=== PATIENT | female | born 1990 | race Caucasian/White ===

== ENCOUNTER 2016-05-01 06:56 | Emergency (ER) | payer OTHER ==
--- NOTE | 2016-05-01 08:05 | DIAGNOSTIC IMAGING REPORT ---
PROCEDURE: XR CHEST 1 VIEW INDICATION: Stage IV sarcoma, shortness of breath. Initial encounter. TECHNIQUE: Portable AP view 07:16 a.m. COMPARISON: None. FINDINGS: Marked widening of the superior mediastinum. Mild cardiomegaly with normal pulmonary vascularity. Right upper lobe and bibasilar infiltrates with small left pleural effusion. Right-sided central line with the tip at the SVC/right atrial junction. Surgical hardware over the thoracic spine from T5 to T11. Left glenohumeral joint arthroplasty. IMPRESSION: 1. Negative chest.
--- NOTE | 2016-05-01 08:35 | ED NURSING NOTES ---
Clinical Report - Nurses [facility] [address] [place] [address] 05/01/2016 7:00 [id number] Triage time 07:00. Acuity: LEVEL 3. Chief Complaint: DIFFICULTY BREATHING. --07:06 Karen Herrera R.N. 07:03 05/01/16. BP: 126/66. HR: 170. RR: 26. O2 saturation: 82% on room air. O2 started via nasal cannula at 2 liters/minute. Temp: 99.6 F (oral). Guevara-Guadalupe pain scale: 4/10. --07:06 Karen Herrera R.N. Weight: 34 kg stated. Height/Length: 59 inches Per Patient. BMI: 15.2. --07:05 Karen Herrera R.N. Medications ClonazePAM Oral. --07:05 Karen Herrera R.N. Morphine Sulfate Oral. --07:05 Karen Herrera R.N. Allergies No Known Drug Allergy. --07:06 Karen Herrera R.N. History Arrived by EMS. Historian: patient. Primary physician (Hospice). This started today. Treatment VETERINARY RECEPTIONIST: (Morphine (given by family)). See EMS report. --07:06 Karen Herrera R.N. PROBLEMS: Sarcoma. --07:06 Karen Herrera R.N. ADDITIONAL SURGERIES: Back Surgery. --07:06 Karen Herrera R.N. Interventions ID band on patient. To treatment room. --07:06 Karen Herrera R.N. PHYSICAL ASSESSMENT 07:26 05/01/16. GENERAL / NEURO / PSYCH: Appears anxious and in distress. Decreased awareness. She has had weakness. RESPIRATORY: Severe respiratory distress. The patient can speak a few words at a time. Nasal flaring present. Prominent accessory muscle use. Decreased breath sounds. Bilateral rhonchi present diffusely; rhonchi present in the right lung; rhonchi present in the left lung. CVS: Cardiac rhythm: sinus tachycardia; (172). SKIN: Skin is pale. --07:26 Felipe Estrada R.N. NURSING PROGRESS NOTES 07:05/01/16. Care transferred and report received. --07:08 Felipe Estrada R.N. EKG time: (07:16 AM). EKG was performed by a tech and shown to the ED physician. --07:19 Rossy Krueger 07:15 05/01/2016 Site #1 started via IV in the right forearm with an 20g angiocath, with aseptic technique and good blood return; one attempt. Blood drawn: rainbow set. Labeled in the presence of the patient and sent to the lab. Saline lock flushed with 10 mL saline (started by RONDA Tate). --07:21 Karen Herrera R.N. 07:20 05/01/2016 Ativan (LORazepam) IVP 0.5 mg given over 30 second(s) via site #1. Sedative warning given to the patient. IV patency established. IV site checked: no pain, redness, or swelling. IV flushed thoroughly pre- and post-medication administration. IVP given by RN. --07:21 Karen Herrera R.N. 07:26 05/01/16. The plan of care for this patient has been created. Oxygen administered at 4 liters. bus monitor, pulse oximeter and NIBP monitor placed on patient; monitor alarms on. Patient gowned. Head of bed elevated. Reassurance given to the patient and patient's family. Two patient identifiers checked. Call light placed in reach. Side rails up x 2. Bed placed in lowest position. Brakes of bed on. Brakes of chair on. --07:26 Felipe Estrada R.N. 07:26 05/01/16. Cardiac rhythm: sinus tachycardia. --07:27 Felipe Estrada R.N. 07:27 05/01/16. ( Assumed care of pt, pt with rapid RR and in resp distress, MD at bedside pt with decreased LOC, pt is hospice care and MD talking with family about POC). --07:27 Felipe Estrada R.N. 07:29 05/01/2016 Ativan (LORazepam) IVP 1 mg given over 2 minute(s) via site #1. Allergies verified, confirmed 5 rights and sedative warning given to the patient. IV patency established. IV site checked: no pain, redness, or swelling. IV flushed thoroughly pre- and post-medication administration. IVP given by physician. --07:29 Felipe Estrada R.N. 07:29 05/01/2016 HALDOL (Haloperidol Lactate) IVP 4 mg given over 2 minute(s) via site #1. Allergies verified, confirmed 5 rights and sedative warning given to the patient. IV patency established. IV site checked: no pain, redness, or swelling. IV flushed thoroughly pre- and post-medication administration. IVP given by RN. --07:29 Felipe Estrada R.N. 07:32 05/01/2016 Started 2 gm of Rocephin (CefTRIAXone Sodium) IVPB in bag #1 50 mL; at 150 mL/hr over 20 minute(s) via site #1; Allergies verified and confirmed 5 rights. IV patency established. IV site checked: no pain, redness, or swelling. IV flushed thoroughly pre- and post-medication administration. Completed per protocol. --07:42 Felipe Estrada R.N. 07:37 05/01/16. ( Pt taking off oxygen and is restless, plan is to get pt comfortable). --07:37 Felipe Estrada R.N. 07:37 05/01/16. ( Ice given and oral care completed). --07:37 Felipe Estrada R.N. 07:47 05/01/2016 Etomidate IVP 5 mg given over 2 minute(s) via site #1. Allergies verified, confirmed 5 rights and sedative warning given to the patient. IV patency established. IV site checked: no pain, redness, or swelling. IV flushed thoroughly pre- and post-medication administration. IVP given by RN. --07:47 Felipe Estrada R.N. 07:48 05/01/2016 Rocephin IVPB Discontinued: bag #1 infused. Total amount infused: 50 mL. IV patency established. IV site checked: no pain, redness, or swelling. IV flushed thoroughly. --07:48 Felipe Estrada R.N. 07:51 05/01/2016 Started 900 mg of Clindamycin IVPB in bag #1 50 mL; at 100 mL/hr over 30 minute(s) via site #1; Allergies verified and confirmed 5 rights. IV patency established. IV site checked: no pain, redness, or swelling. IV flushed thoroughly pre- and post-medication administration. Completed per protocol. --07:51 Felipe Estrada R.N. 07:54 05/01/16. --07:54 Felipe Estrada R.N. 07:51 05/01/16. BP: 122/63. HR: 110. RR: 30. O2 saturation: 98% on nasal cannula at 4 liters/minute. --07:54 Felipe Estrada R.N. 07:56 05/01/16. HR: 162. O2 saturation: 97% on nasal cannula at 4 liters/minute. --07:56 Felipe Estrada R.N. 07:56 05/01/16. --07:56 Felipe Estrada R.N. 07:56 05/01/16. Reassessment after medication administered. She is calm and has had no adverse reaction. --07:56 Felipe Estrada R.N. 08:15 05/01/2016 Clindamycin IVPB Discontinued: infused. Total amount infused: 50 mL. IV patency established. IV site checked: no pain, redness, or swelling. IV flushed thoroughly. --08:20 Felipe Estrada R.N. 08:20 05/01/2016 Started 500 mg of Zithromax (Azithromycin) IVPB in bag #1 250 mL; at 250 mL/hr over 1 hour(s) via site #1; Allergies verified and confirmed 5 rights. IV patency established. IV site checked: no pain, redness, or swelling. IV flushed thoroughly pre- and post-medication administration. Completed per protocol. --08:20 Felipe Estrada R.N. 08:30 05/01/2016 Ativan (LORazepam) IVP 1 mg given. via site #1. Allergies verified, confirmed 5 rights and sedative warning given. IV patency established. IV site checked: no pain, redness, or swelling. IV flushed thoroughly pre- and post-medication administration. IVP given by RN. --08:55 Felipe Estrada R.N. 08:49 05/01/2016 Ativan (LORazepam) IVP 1 mg given over 2 minute(s) via site #1. Allergies verified, confirmed 5 rights and sedative warning given to the patient. IV patency established. IV site checked: no pain, redness, or swelling. IV flushed thoroughly pre- and post-medication administration. IVP given by RN. --08:49 Felipe Estrada R.N. 08:49 05/01/2016 Etomidate IVP 5 mg given over 2 minute(s) via site #1. Allergies verified, confirmed 5 rights and sedative warning given. IV patency established. IV site checked: no pain, redness, or swelling. IV flushed thoroughly pre- and post-medication administration. IVP given by RN. --08:50 Felipe Estrada R.N. 08:55 05/01/16. ( [facility] ETA 0915). --08:55 Felipe Estrada R.N. 09:36 05/01/2016 Ativan (LORazepam) IVP 2 mg given. via site #1. Allergies verified, confirmed 5 rights and sedative warning given to the patient. IV patency established. IV site checked: no pain, redness, or swelling. IV flushed thoroughly pre- and post-medication administration. IVP given by RN. --09:36 Felipe Estrada R.N. 09:36 05/01/2016 Site #1 removed upon discharge. Catheter intact. Manual pressure and pressure dressing applied. --09:36 Felipe Estrada R.N. 09:20. Overall patient status is improved- she states feels better. ( Pt appears to be calmer on DC home). --11:20 Felipe Estrada R.N. DISPOSITION / DISCHARGE 08:56 05/01/16. --08:56 Felipe Estrada R.N. 08:55 05/01/16. BP: 114/70. HR: 150. RR: 28. O2 saturation: 98% on nasal cannula at 4 liters/minute. --08:56 Felipe Estrada R.N. 09:19 05/01/16. Condition at departure: improved. Report was given to a nurse. ([facility]). --09:19 Felipe Estrada R.N. late entry -09:20. Discharge instructions provided and reviewed with the parent. Reviewed warnings. Reviewed medication(s). Treatments reviewed. Parent verbalized understanding. Written instructions provided in Maltese. The patient was discharged by the physician. She was discharged home and accompanied by family. She left the Emergency Department via ambulance and on a stretcher. --11:20 Felipe Estrada R.N. Departure time: 924. --11:21 Felipe Estrada R.N. Locked/Released at 05/01/2016 11:21 by Felipe Estrada R.N.
--- NOTE | 2016-05-01 08:35 | ED CLINICAL REPORT ---
Clinical Report - Physicians/Mid Levels [facility] [address] [place] [address] 05/01/2016 7:00 Patient: JESÚS SOL Time Seen: 0703. Arrived- By ambulance. Historian- patient, EMS personnel and family. HISTORY OF PRESENT ILLNESS Chief Complaint: DYSPNEA and anxiety. This started today and is still present. The dyspnea is severe. (Home meds, including morphine and clonazepam, have not helped.). No cough, sputum production, fever, sweating episodes or wheezing. No chills, dyspnea on exertion, chest pain or discomfort or calf pain. No foot swelling, orthopnea, dizziness, tingling or numbness. No palpitations. The patient has had anxiety. (Pt is a Hospice pt, with terminal osteosarcoma. Hospice instructed parents to have pt brought here when home meds were not working.). Similar symptoms previously: Recent medical care: The patient was seen recently by a health care provider. REVIEW OF SYSTEMS The patient has had severe, chronic weight loss with poor nutritional intake. No muscle aches, eye irritation, sore throat, nasal discharge or sinus drainage. No nausea, vomiting, abdominal pain, diarrhea or black stools. No bloody stools, headache, fainting episodes, blurred vision or difficulty with urination. No skin rash, enlarged lymph nodes or joint pain. Denies current . ROS per parents, as pt cannot speak. All systems otherwise negative, except as recorded above. PAST HISTORY Problems: Sarcoma. Additional Surgeries: Back Surgery. Medications: Morphine Sulfate Oral. ClonazePAM Oral. Allergies: No Known Drug Allergy. SOCIAL HISTORY Never smoker. No alcohol use or drug use. ADDITIONAL NOTES The nursing notes have been reviewed. PHYSICAL EXAM Vital Signs: 05/01/2016 07:03 BP: 126/66. HR: 170. RR: 26. O2 saturation: 82%. Temp: 99.6 F. Guevara-Guadalupe pain scale: 4/10. Have been reviewed. Appearance: Alert. Patient in severe distress. (PT is anxious, and in respiratory distress.). Eyes: Pupils equal, round and reactive to light. Eyes normal inspection. ENT: Nose normal. Neck: Normal inspection. CVS: Abnormal rhythm, which is tachycardic and regular. Heart sounds normal. Pulses normal. Respiratory: Severe respiratory distress with accessory muscle use, anxiety and tachypnea. Unable to speak. Decreased air movement. Moderate bilateral rhonchi present diffusely. No wheezes. Abdomen: Soft and nontender. Back: No CVA tenderness. Skin: Skin warm and dry. No rash. Normal skin turgor. Extremities: No lower extremity edema. Neuro: (Pt is moving all 4 extremities.). LABS, X-RAYS, AND EKG Rhythm Strip #1: Time: (704). Rate= 172. Paroxysmal supra-ventricular tachycardia. Regular rhythm. Narrow QRS complexes. No ectopy. Conduction normal. Normal ST segments and T waves. The study was interpreted by me. Chest X-ray: Widened mediastinum (Pt has a large sternal sarcoma, which overlies the mediastinum.). Infiltrate in the right upper lobe. Consistent with pneumonia. Normal heart size. Great vessels normal. Bony abnormality present (sternal sarcoma). Soft tissues normal. No fracture. Views: AP (portable). Technique: good. The X-rays were independently viewed by me and interpreted contemporaneously by me. Prior films were not available for comparison. Pulse Oximetry: 05/01/2016 07:03 O2 saturation: 82%. (FIO2 - room air). Interpretation: hypoxemia. PROGRESS AND PROCEDURES Course of Care: This pt was in severe distress, and was evaluated by me, immediatey upon arrival in the ED. She was hypoxemic, and had a very high heart rate, and was immediately placed on supplemental O2. She was given doses of Ativan and Haldol to try to calm her down, while I monitored her at the bedside, and awaited arrival of pt's mother to discuss a care plan. When parents arrived, I did d/w them that pt appears to be in SVT, and that the treatment for this involves critical care procedures, including the administration of adenosine. I did discuss that given the pt's extremely frail condition, her heart may not be able to handle a prolonged period at this rate; conversely, the medication also may be difficult for the pt to handle. Additionally, the pt is on Hospice, and has been designated as "limited interventions". The parents did discuss the matter, and ultimately, opted for comfort care only, and mother stated she would like to take the pt home, once she was doing better. The pt was still very anxious, and very tachycardic. Multiple doses of Ativan, along with Haldol, hadn't been very effective, so I did try a dose of Etomidate. This worked very well for the pt, and she did become much calmer. We had taken the pt off of the monitor, as she was receiving only comfort measures. CXR showed a possible RUL infiltrate, and parents did agree to antibiotics for this. Hospice nurse did come to visit the pt in the ED. Pt received a second dose of Etomidate, as well as another of Ativan, and was more comfortable, though still with labored respirations. Mother did feel comfortable taking the pt home at this point, and Hospice nurse stated she would come to the home and help with a medication plan for there. Critical care performed (60 minutes). Time is exclusive of separately billable procedures. Time includes: direct patient care, patient reassessment, coordination of patient care, interpretation of data (pulse oximetry, chest xrays and cardiac output measurements), review of patient's medical records, medical consultation, family consultation regarding treatment decisions and documentation of patient care. The patient required critical care due to the acute impairment of vital organ systems (cardiovascular and respiratory) and a high probability of imminent and life threatening deterioration. Multiple emergent interventions were required to prevent sudden life threatening deterioration. Mother and father counseled in person regarding the patient's critical condition, test results and diagnosis, poor prognosis for survival and comfort care measures for the patient. Parental concerns were addressed. Old medical records reviewed. Disposition: Discharged. Condition: critical and improved. CLINICAL IMPRESSION Aspiration pneumonia with hypoxemia. Vital signs recorded and reviewed; empiric antibiotics given in the ED. Anxiety reaction with hyperventilation. INSTRUCTIONS (Jesús's x-ray shows that she may have aspirated some stomach contents into her right lung. Likely, the difficulty breathing has caused her anxiety. Jesús has been given several medications in the ER to help calm her; however, you will need to work with Hospice on a plan for keeping her comfortable at home. She has also been given IV antibiotics here, and will continue these at home.). Warnings: GENERAL WARNINGS: Return or contact your physician immediately if your condition worsens or changes unexpectedly, if not improving as expected, or if other problems arise. Your Current Medications: CONTINUE TAKING THE FOLLOWING MEDICATIONS: ClonazePAM Oral. Morphine Sulfate Oral. Prescription Medications: Clindamycin 300 mg: take 1 capsule orally every 6 hours for 7 days. No refill. Zithromax Liquid: 200mg/5 mL: take six (6) mL orally today, followed by six (6) mL orally every day for the next 3 days. Total course 4 days. No refill. Substitution is permissible. Follow-up: Follow up with your doctor as needed. Understanding of the discharge instructions verbalized by family. (Electronically signed by Zenaida Lopez MD 05/08/2016 10:46)
--- NOTE | 2016-05-01 08:35 | ED ORDER SUMMARY ---
..... Patient: JESÚS SOL OrderSheet [facility] VisitID: [id number] [address] [place] [address] 26y, F Registration Date/Time: 05/01/2016 ORDER SHEET Weight: 34.0 kg (stated) Allergies: No Known Drug Allergy GENERAL ORDERS: Chest 1V Urgent (07:13 05/01/2016 MWinterer R.N. per protocol) (7:20 JBoardley R.N.) MEDICATION ORDERS: Rocephin IM 2 gm (NOW) (07:27 05/01/2016 Alhaji PARIS) (Ack 7:29 JBoardley R.N.) (Cancelled: Change in patient condition7:37 JBoardley R.N.) IV FLUIDS: Ativan IV 0.5 mg (HIGH ALERT MEDICATION, NOW) (07:19 05/01/2016 RCollier R.N. verbal order read back to Alhaji PARIS) (7:21 RCollier R.N.) Ativan IV 1 mg (HIGH ALERT MEDICATION, NOW) (07:26 05/01/2016 Alhaji PARIS) (7:29 JBoardley R.N.) Haldol IV 5 mg (HIGH ALERT MEDICATION, NOW) (07:26 05/01/2016 Alhaji PARIS) (7:29 JBoardley R.N.) Clindamycin IV 900 mg/50mL (NOW) (07:26 05/01/2016 Alhaji PARIS) (Ack 7:29 JBoardley R.N.) (7:51 JBoardley R.N.) Zithromax IV 500 mg/250 mL (NOW) (07:27 05/01/2016 Alhaji PARIS) (Ack 7:29 JBoardley R.N.) (8:20 JBoardley R.N.) Etomidate IV 10 mg (HIGH ALERT MEDICATION, NOW) (07:37 05/01/2016 Alhaji PARIS) (Ack 7:41 JBoardley R.N.) (Cancelled: Change in patient condition7:46 JBoardley R.N.) Rocephin IV 2 gm/50mL (NOW) (07:41 05/01/2016 JBoardley R.N. verbal order read back to Alhaji PARIS) (7:42 JBoardley R.N.) Etomidate IV 5mg (HIGH ALERT MEDICATION, NOW) (07:47 05/01/2016 JBoardley R.N. verbal order read back to Alhaji PARIS) (7:47 JBoardley R.N.) Ativan IV 1 mg (HIGH ALERT MEDICATION, NOW) (08:24 05/01/2016 Alhaji PARIS) (Ack 8:27 JBoardley R.N.) (8:49 JBoardley R.N.) Etomidate IV 5mg (HIGH ALERT MEDICATION, NOW) (08:49 05/01/2016 JBoardley R.N. verbal order read back to Alhaji PARIS) (8:50 JBoardley R.N.) Ativan IV 1 mg (HIGH ALERT MEDICATION) (08:54 05/01/2016 JBoardley R.N. verbal order read back to Alhaji PARIS) (Cancelled: Other8:54 JBoardley R.N.) Ativan IV 0.5 mg (HIGH ALERT MEDICATION, NOW) (08:54 05/01/2016 JBoardley R.N. verbal order read back to Alhaji PARIS) (8:55 JBoardley R.N.) Ativan IV 2 mg (HIGH ALERT MEDICATION, NOW) (09:13 05/01/2016 JBoardley R.N. verbal order read back to Alhaji PARIS) (Ack 9:14 JBoardley R.N.) (9:36 JBoardley R.N.) Give prior to ambulance ride home ORDER SHEET NOTES: [Electronically signed by Felipe Estrada R.N. (11:21 05/01/2016)] [Electronically signed by Zenaida Lopez MD (10:46 05/08/2016)] [Electronically locked/signed by Felipe Estrada R.N. (11:21 05/01/2016)]
--- NOTE | 2016-05-01 08:35 | ED ORDER SUMMARY ---
..... Patient: JESÚS SOL OrderSheet [facility] VisitID: [id number] [address] [place] [address] 26y, F Registration Date/Time: 05/01/2016 ORDER SHEET Weight: 34.0 kg (stated) Allergies: No Known Drug Allergy GENERAL ORDERS: Chest 1V Urgent (07:13 05/01/2016 MWinterer R.N. per protocol) (7:20 JBoardley R.N.) MEDICATION ORDERS: Rocephin IM 2 gm (NOW) (07:27 05/01/2016 Alhaji PARIS) (Ack 7:29 JBoardley R.N.) (Cancelled: Change in patient condition7:37 JBoardley R.N.) IV FLUIDS: Ativan IV 0.5 mg (HIGH ALERT MEDICATION, NOW) (07:19 05/01/2016 RCollier R.N. verbal order read back to Alhaji PARIS) (7:21 RCollier R.N.) Ativan IV 1 mg (HIGH ALERT MEDICATION, NOW) (07:26 05/01/2016 Alhaji PARIS) (7:29 JBoardley R.N.) Haldol IV 5 mg (HIGH ALERT MEDICATION, NOW) (07:26 05/01/2016 Alhaji PARIS) (7:29 JBoardley R.N.) Clindamycin IV 900 mg/50mL (NOW) (07:26 05/01/2016 Alhaji PARIS) (Ack 7:29 JBoardley R.N.) (7:51 JBoardley R.N.) Zithromax IV 500 mg/250 mL (NOW) (07:27 05/01/2016 Alhaji PARIS) (Ack 7:29 JBoardley R.N.) (8:20 JBoardley R.N.) Etomidate IV 10 mg (HIGH ALERT MEDICATION, NOW) (07:37 05/01/2016 Alhaji PARIS) (Ack 7:41 JBoardley R.N.) (Cancelled: Change in patient condition7:46 JBoardley R.N.) Rocephin IV 2 gm/50mL (NOW) (07:41 05/01/2016 JBoardley R.N. verbal order read back to Alhaji PARIS) (7:42 JBoardley R.N.) Etomidate IV 5mg (HIGH ALERT MEDICATION, NOW) (07:47 05/01/2016 JBoardley R.N. verbal order read back to Alhaji PARIS) (7:47 JBoardley R.N.) Ativan IV 1 mg (HIGH ALERT MEDICATION, NOW) (08:24 05/01/2016 Alhaji PARIS) (Ack 8:27 JBoardley R.N.) (8:49 JBoardley R.N.) Etomidate IV 5mg (HIGH ALERT MEDICATION, NOW) (08:49 05/01/2016 JBoardley R.N. verbal order read back to Alhaji PARIS) (8:50 JBoardley R.N.) Ativan IV 1 mg (HIGH ALERT MEDICATION) (08:54 05/01/2016 JBoardley R.N. verbal order read back to Alhaji PARIS) (Cancelled: Other8:54 JBoardley R.N.) Ativan IV 0.5 mg (HIGH ALERT MEDICATION, NOW) (08:54 05/01/2016 JBoardley R.N. verbal order read back to Alhaji PARIS) (8:55 JBoardley R.N.) Ativan IV 2 mg (HIGH ALERT MEDICATION, NOW) (09:13 05/01/2016 JBoardley R.N. verbal order read back to Alhaji PARIS) (Ack 9:14 JBoardley R.N.) (9:36 JBoardley R.N.) Give prior to ambulance ride home ORDER SHEET NOTES: [Electronically signed by Felipe Estrada R.N. (11:21 05/01/2016)] [Electronically signed by Zenaida Lopez MD (10:46 05/08/2016)] [Electronically locked/signed by Felipe Estrada R.N. (11:21 05/01/2016)]
--- NOTE | 2016-05-08 10:46 | ED MAR SUMMARY ---
..... Medication Administration Record [facility] [address] [place] [address] Patient: JESÚS SOL Visit ID: [id number] 26y, F Weight: 34.0 kg Height/Length: 59 in BMI: 15.2 ALLERGIES: No Known Drug Allergy Given 07:05/01/2016 Karen Herrera R.N. Medication Administered: ATIVAN [IVP] (LORAZEPAM), Dose: 0.5 mg IVP over 30 second(s), Site: #1 right forearm. Medication Ordered: Ativan IV 0.5 mg (HIGH ALERT MEDICATION, NOW). Given 07:05/01/2016 Felipe Estrada R.N. Medication Administered: ATIVAN [IVP] (LORAZEPAM), Dose: 1 mg IVP over 2 minute(s), Site: #1 right forearm. Medication Ordered: Ativan IV 1 mg (HIGH ALERT MEDICATION, NOW). Given 07:05/01/2016 Felipe Estrada R.N. Medication Administered: HALDOL [IVP] (HALOPERIDOL LACTATE), Dose: 4 mg IVP over 2 minute(s), Site: #1 right forearm. Medication Ordered: Haldol IV 5 mg (HIGH ALERT MEDICATION, NOW). Start 07:32 05/01/2016 Felipe Estrada R.N., Stop 07:48 05/01/2016 Felipe Estrada R.N. Medication Administered: ROCEPHIN [IVPB] (CEFTRIAXONE SODIUM), Dose: 2 gm IVPB over 20 minute(s), Rate: 150 mL/hr, Dispensed: 50 mL bag, Site: #1 right forearm. Medication Ordered: Rocephin IV 2 gm/50mL (NOW). Given 07:47 05/01/2016 Felipe Estrada R.N. Medication Administered: ETOMIDATE [IVP], Dose: 5 mg IVP over 2 minute(s), Site: #1 right forearm. Medication Ordered: Etomidate IV 5mg (HIGH ALERT MEDICATION, NOW). Start 07:51 05/01/2016 Felipe Estrada R.N., Stop 08:15 05/01/2016 Felipe Estrada R.N. Medication Administered: CLINDAMYCIN [IVPB], Dose: 900 mg IVPB over 30 minute(s), Rate: 100 mL/hr, Dispensed: 50 mL bag, Site: #1 right forearm. Medication Ordered: Clindamycin IV 900 mg/50mL (NOW). Start 08:20 05/01/2016 Felipe Estrada R.N. Medication Administered: ZITHROMAX [IVPB] (AZITHROMYCIN), Dose: 500 mg IVPB over 1 hour(s), Rate: 250 mL/hr, Dispensed: 250 mL bag, Site: #1 right forearm. Medication Ordered: Zithromax IV 500 mg/250 mL (NOW). Given 08:30 05/01/2016 Felipe Estrada R.N. Medication Administered: ATIVAN [IVP] (LORAZEPAM), Dose: 1 mg IVP, Site: #1 right forearm. Medication Ordered: Ativan IV 0.5 mg (HIGH ALERT MEDICATION, NOW). Given 08:49 05/01/2016 Felipe Estrada R.N. Medication Administered: ATIVAN [IVP] (LORAZEPAM), Dose: 1 mg IVP over 2 minute(s), Site: #1 right forearm. Medication Ordered: Ativan IV 1 mg (HIGH ALERT MEDICATION, NOW). Given 08:49 05/01/2016 Felipe Estrada R.N. Medication Administered: ETOMIDATE [IVP], Dose: 5 mg IVP over 2 minute(s), Site: #1 right forearm. Medication Ordered: Etomidate IV 5mg (HIGH ALERT MEDICATION, NOW). Given 09:36 05/01/2016 Felipe Estrada R.N. Medication Administered: ATIVAN [IVP] (LORAZEPAM), Dose: 2 mg IVP, Site: #1. Medication Ordered: Ativan IV 2 mg (HIGH ALERT MEDICATION, NOW).
--- NOTE | 2016-05-08 10:46 | ED MAR SUMMARY ---
..... Medication Administration Record [facility] [address] [place] [address] Patient: JESÚS SOL Visit ID: [id number] 26y, F Weight: 34.0 kg Height/Length: 59 in BMI: 15.2 ALLERGIES: No Known Drug Allergy Given 07:05/01/2016 Karen Herrera R.N. Medication Administered: ATIVAN [IVP] (LORAZEPAM), Dose: 0.5 mg IVP over 30 second(s), Site: #1 right forearm. Medication Ordered: Ativan IV 0.5 mg (HIGH ALERT MEDICATION, NOW). Given 07:05/01/2016 Felipe Estrada R.N. Medication Administered: ATIVAN [IVP] (LORAZEPAM), Dose: 1 mg IVP over 2 minute(s), Site: #1 right forearm. Medication Ordered: Ativan IV 1 mg (HIGH ALERT MEDICATION, NOW). Given 07:05/01/2016 Felipe Estrada R.N. Medication Administered: HALDOL [IVP] (HALOPERIDOL LACTATE), Dose: 4 mg IVP over 2 minute(s), Site: #1 right forearm. Medication Ordered: Haldol IV 5 mg (HIGH ALERT MEDICATION, NOW). Start 07:32 05/01/2016 Felipe Estrada R.N., Stop 07:48 05/01/2016 Felipe Estrada R.N. Medication Administered: ROCEPHIN [IVPB] (CEFTRIAXONE SODIUM), Dose: 2 gm IVPB over 20 minute(s), Rate: 150 mL/hr, Dispensed: 50 mL bag, Site: #1 right forearm. Medication Ordered: Rocephin IV 2 gm/50mL (NOW). Given 07:47 05/01/2016 Felipe Estrada R.N. Medication Administered: ETOMIDATE [IVP], Dose: 5 mg IVP over 2 minute(s), Site: #1 right forearm. Medication Ordered: Etomidate IV 5mg (HIGH ALERT MEDICATION, NOW). Start 07:51 05/01/2016 Felipe Estrada R.N., Stop 08:15 05/01/2016 Felipe Estrada R.N. Medication Administered: CLINDAMYCIN [IVPB], Dose: 900 mg IVPB over 30 minute(s), Rate: 100 mL/hr, Dispensed: 50 mL bag, Site: #1 right forearm. Medication Ordered: Clindamycin IV 900 mg/50mL (NOW). Start 08:20 05/01/2016 Felipe Estrada R.N. Medication Administered: ZITHROMAX [IVPB] (AZITHROMYCIN), Dose: 500 mg IVPB over 1 hour(s), Rate: 250 mL/hr, Dispensed: 250 mL bag, Site: #1 right forearm. Medication Ordered: Zithromax IV 500 mg/250 mL (NOW). Given 08:30 05/01/2016 Felipe Estrada R.N. Medication Administered: ATIVAN [IVP] (LORAZEPAM), Dose: 1 mg IVP, Site: #1 right forearm. Medication Ordered: Ativan IV 0.5 mg (HIGH ALERT MEDICATION, NOW). Given 08:49 05/01/2016 Felipe Estrada R.N. Medication Administered: ATIVAN [IVP] (LORAZEPAM), Dose: 1 mg IVP over 2 minute(s), Site: #1 right forearm. Medication Ordered: Ativan IV 1 mg (HIGH ALERT MEDICATION, NOW). Given 08:49 05/01/2016 Felipe Estrada R.N. Medication Administered: ETOMIDATE [IVP], Dose: 5 mg IVP over 2 minute(s), Site: #1 right forearm. Medication Ordered: Etomidate IV 5mg (HIGH ALERT MEDICATION, NOW). Given 09:36 05/01/2016 Felipe Estrada R.N. Medication Administered: ATIVAN [IVP] (LORAZEPAM), Dose: 2 mg IVP, Site: #1. Medication Ordered: Ativan IV 2 mg (HIGH ALERT MEDICATION, NOW).
--- NOTE | 2016-05-08 10:46 | ED MED RECONCILIATION SUMMARY ---
Patient: JESÚS SOL Medication Reconciliation Report [facility] VisitID: [id number] [address] [place] [address] 26y, F Registration Date/Time: 05/01/2016 Weight: 34.0 kg Height/Length: 59 in. BMI: 15.2 ALLERGIES: No Known Drug Allergy The patient's Home Medications are listed below: CONTINUE TAKING THE FOLLOWING MEDICATIONS: ClonazePAM Oral Morphine Sulfate Oral The source(s) of the original Home Medication information: Not obtained. The following Medications were given to the patient in the Emergency Department: Ativan [IVP] IVP 0.5 mg, administered: 05/01/2016 7:20:00 AM Ativan [IVP] IVP 1 mg, administered: 05/01/2016 7:29:00 AM HALDOL [IVP] IVP 4 mg, administered: 05/01/2016 7:29:00 AM Rocephin [IVPB] IVPB bolus 0, then 2 gm 150 mL/hr, administered: 05/01/2016 7:32:00 AM Etomidate [IVP] IVP 5 mg, administered: 05/01/2016 7:47:00 AM Clindamycin [IVPB] IVPB bolus 0, then 900 mg 100 mL/hr, administered: 05/01/2016 7:51:00 AM Zithromax [IVPB] IVPB bolus 0, then 500 mg 250 mL/hr, administered: 05/01/2016 8:20:00 AM Ativan [IVP] IVP 1 mg, administered: 05/01/2016 8:49:00 AM Etomidate [IVP] IVP 5 mg, administered: 05/01/2016 8:49:00 AM Ativan [IVP] IVP 1 mg, administered: 05/01/2016 8:30:00 AM Ativan [IVP] IVP 2 mg, administered: 05/01/2016 9:36:00 AM The following Medications were prescribed to the patient: Clindamycin 300 mg: take 1 capsule orally every 6 hours for 7 days. No refill. -- Zenaida Lopez MD Zithromax Liquid: 200mg/5 mL: take six (6) mL orally today, followed by six (6) mL orally every day for the next 3 days. Total course 4 days. No refill. Substitution is permissible. -- Zenaida Lopez MD
--- NOTE | 2016-05-08 10:46 | ED MED RECONCILIATION SUMMARY ---
Patient: JESÚS SOL Medication Reconciliation Report [facility] VisitID: [id number] [address] [place] [address] 26y, F Registration Date/Time: 05/01/2016 Weight: 34.0 kg Height/Length: 59 in. BMI: 15.2 ALLERGIES: No Known Drug Allergy The patient's Home Medications are listed below: CONTINUE TAKING THE FOLLOWING MEDICATIONS: ClonazePAM Oral Morphine Sulfate Oral The source(s) of the original Home Medication information: Not obtained. The following Medications were given to the patient in the Emergency Department: Ativan [IVP] IVP 0.5 mg, administered: 05/01/2016 7:20:00 AM Ativan [IVP] IVP 1 mg, administered: 05/01/2016 7:29:00 AM HALDOL [IVP] IVP 4 mg, administered: 05/01/2016 7:29:00 AM Rocephin [IVPB] IVPB bolus 0, then 2 gm 150 mL/hr, administered: 05/01/2016 7:32:00 AM Etomidate [IVP] IVP 5 mg, administered: 05/01/2016 7:47:00 AM Clindamycin [IVPB] IVPB bolus 0, then 900 mg 100 mL/hr, administered: 05/01/2016 7:51:00 AM Zithromax [IVPB] IVPB bolus 0, then 500 mg 250 mL/hr, administered: 05/01/2016 8:20:00 AM Ativan [IVP] IVP 1 mg, administered: 05/01/2016 8:49:00 AM Etomidate [IVP] IVP 5 mg, administered: 05/01/2016 8:49:00 AM Ativan [IVP] IVP 1 mg, administered: 05/01/2016 8:30:00 AM Ativan [IVP] IVP 2 mg, administered: 05/01/2016 9:36:00 AM The following Medications were prescribed to the patient: Clindamycin 300 mg: take 1 capsule orally every 6 hours for 7 days. No refill. -- Zenaida Lopez MD Zithromax Liquid: 200mg/5 mL: take six (6) mL orally today, followed by six (6) mL orally every day for the next 3 days. Total course 4 days. No refill. Substitution is permissible. -- Zenaida Lopez MD
--- NOTE | 2016-05-08 10:46 | ED DISCHARGE INSTRUCTIONS ---
Patient: JESÚS SOL General Instructions [facility] VisitID: [id number] [address] [place] [address] 26y, F Registration Date/Time: 05/01/2016 Aspiration pneumonia with hypoxemia. Vital signs recorded and reviewed; empiric antibiotics given in the ED. Anxiety reaction with hyperventilation. INSTRUCTIONS (Jesús's x-ray shows that she may have aspirated some stomach contents into her right lung. Likely, the difficulty breathing has caused her anxiety. Jesús has been given several medications in the ER to help calm her; however, you will need to work with Hospice on a plan for keeping her comfortable at home. She has also been given IV antibiotics here, and will continue these at home.). Warnings: GENERAL WARNINGS: Return or contact your physician immediately if your condition worsens or changes unexpectedly, if not improving as expected, or if other problems arise. Your Current Medications: CONTINUE TAKING THE FOLLOWING MEDICATIONS: ClonazePAM Oral. Morphine Sulfate Oral. Prescription Medications: Clindamycin 300 mg: take 1 capsule orally every 6 hours for 7 days. No refill. Zithromax Liquid: 200mg/5 mL: take six (6) mL orally today, followed by six (6) mL orally every day for the next 3 days. Total course 4 days. No refill. Substitution is permissible. Follow-up: Follow up with your doctor as needed. Understanding of the discharge instructions verbalized by family. ADDITIONAL INFORMATION Pneumonia (Adult) Pneumonia is an infection deep within the lung, in the small air sacs (alveoli). It may be due to a virus or bacteria and is usually treated with an antibiotic. Severe cases require treatment in the hospital. Milder cases can be treated at home. Symptoms usually start to improve during the first2 days of treatment. Home Care: Rest at home for the first 23 days or until you feel stronger. When resuming activity, dont let yourself become overly tired. Avoid exposure to cigarette smoke (yours or others). You may use acetaminophen (Tylenol) or ibuprofen (Motrin, Advil) to control fever or pain, unless another medicine was prescribed. [NOTE: If you have chronic liver or kidney disease or ever had a stomach ulcer or GI bleeding, talk with your doctor before using these medicines.] (Aspirin should never be used in anyone under 18 years of age who is ill with a fever. It may cause severe liver damage.) Your appetite may be poor so a light diet is fine. Keep well hydrated by drinking 68 glasses of fluids per day (water, sport drinks such as Gatorade, sodas without caffeine, juices, tea, soup, etc.). This will help loosen secretions in the lung, making it easier for you to cough up the phlegm (sputum). If you also have heart or kidney disease, check with your doctor before you drink extra amounts of fluids. Finish all antibiotic medicine prescribed, even if you are feeling better after a few days. Follow Up with your doctor in the next 23 days (or as advised) to be sure you are responding properly to the medicine. [NOTE: If you are age 65 or older, or if you have chronic lung disease (asthma, emphysema or COPD), we recommendthe pneumococcal vaccination and a yearlyinfluenzavaccination(flu-shot) every . Ask your doctor about this.] Get Prompt Medical Attention if any of the following occur: Not getting better within the first 48 hours of treatment Increasing shortness of breath or rapid breathing (over 25 breaths/minute) Coughing up blood or increasing chest pain with breathing Fever of 100.4F (38C) oral or higher, not better with fever medication Increasing weakness, dizziness or fainting Increasing thirst or dry mouth Sinus pain, headache or a stiff neck Chest pain not caused by coughing You have been given the following additional information: Pneumonia (Adult) (Electronically signed by Zenaida Lopez MD 05/08/2016 10:46)
== END 2016-05-01 09:25 | disposition home or self-care (01) ==
LOC: ED SRH 06:56
DX: J69.0 Pneumonitis due to inhalation of food and vomit (principal); R09.02 Hypoxemia; F41.1 Generalized anxiety disorder; C41.9 Malignant neoplasm of bone and articular cartilage, unspecified